=== PATIENT | male | born 2005 | race African-American/Black ===

== ENCOUNTER 2024-04-23 23:02 | Emergency (ER) | payer OTHER ==
[~2024-04-23] VITALS: Ht 185.4 cm; Wt 70.3 kg
[2024-04-24 00:04] VITALS: TEMP 98.1
[2024-04-24] MEDS ORDERED: KETOROLAC TROMETHAMINE 15 MG/ML VIAL ONE (00:17)
[2024-04-24] MEDS ORDERED: ACETAMINOPHEN ES 500 MG TABLET ONE (00:17)
[2024-04-24 00:23] LABS: BASOPHILS % (AUTO) 0.3 % (0.0-2.0); EOSINOPHILS # (AUTO) 1.2 K/uL (0.0-0.7); EOSINOPHILS % (AUTO) 10.2 % (0.0-6.0); HEMATOCRIT 41 % (39-51); HEMOGLOBIN 14.1 g/dL (13.5-17.5); LYMPHOCYTES # (AUTO) 0.9 K/uL (0.8-4.8); LYMPHOCYTES % (AUTO) 7.1 % (20.0-44.0); MEAN CORPUSCULAR HEMOGLOBIN 31 PG (26.0-33.0); MEAN CORPUSCULAR HGB CONC 35 g/dl (31.0-36.0); MEAN CORPUSCULAR VOLUME 90 fL (80-96); MONOCYTES # (AUTO) 0.7 K/uL (0.1-1.30); MONOCYTES % (AUTO) 5.4 % (2.0-12.0); NEUTROPHILS # (AUTO) 9.4 K/uL (1.8-8.9); PLATELET COUNT (AUTO) 227 K/uL (150-450); RED BLOOD CELL COUNT(AUTO) 4.54 MIL/uL (4.5-6.0); RED CELL DISTRIBUTION WIDTH 12.5 % (11.5-15.0); WHITE BLOOD COUNT (AUTO) 12.2 K/uL (4.3-11.0)
[2024-04-24] MEDS: ACETAMINOPHEN ES 500 MG TABLET PO ONE (00:24)
[2024-04-24] MEDS: KETOROLAC TROMETHAMINE 15 MG/ML VIAL IV ONE (00:24)
[2024-04-24] MEDS: IV NS 0.9% 1,000 ML BAG IV ONE (00:24)
[2024-04-24 00:33] LABS: CREATININE 0.9 mg/dL (0.6-1.3); POTASSIUM 4.3 mmol/L (3.5-5.1)
[2024-04-24 01:28] LABS: APPEARANCE,URINE CLEAR (CLEAR); BILIRUBIN,URINE NEGATIVE (NEGATIVE); BLOOD, URINE NEGATIVE Ery/uL (NEGATIVE); COLOR,URINE YELLOW (YELLOW); KETONES,URINE NEGATIVE (NEGATIVE); LEUKOCYTE ESTERASE ,URINE NEGATIVE (NEGATIVE); NITRITE, URINE NEGATIVE (NEGATIVE); PH,URINE 6.5 (5.0-8.0); PROTEIN,URINE NEGATIVE (NEGATIVE); UGLUCOSE NEGATIVE (NEGATIVE); UROBILINOGEN,URINE 0.2 EU/dL (0.2)
[2024-04-24] MEDS ORDERED: FAMOTIDINE/PF INJ 20 MG/2 ML VIAL IV ONE (01:45)
[2024-04-24] MEDS ORDERED: MAG HYDROX/AL HYDROX/SIMETH 30 ML UDC ONE (01:45)
[2024-04-24] MEDS ORDERED: PANTOPRAZOLE 40 MG VIAL ONE (01:45)
[2024-04-24] MEDS ORDERED: LIDOCAINE VISCOUS 2% UD 15 ML UDC ONE (01:45)
[2024-04-24 01:51] LABS: BILIRUBIN,DIRECT 0.2 mg/dL (0.0-0.2); BILIRUBIN,TOTAL 1.1 mg/dL (0.2-1.0); TOTAL PROTEIN, SERUM 6.9 g/dL (6.4-8.2)
[2024-04-24] MEDS: LIDOCAINE VISCOUS 2% UD 15 ML UDC MM ONE (01:52)
[2024-04-24] MEDS: PANTOPRAZOLE 40 MG VIAL IV ONE (01:52)
[2024-04-24] MEDS: DICYCLOMINE HCL 10 MG CAPSULE PO ONE (01:52)
[2024-04-24] MEDS: FAMOTIDINE/PF INJ 20 MG/2 ML VIAL IV ONE (01:52)
[2024-04-24] MEDS: MAG HYDROX/AL HYDROX/SIMETH 30 ML UDC PO ONE (01:52)
[2024-04-24] MEDS ORDERED: DICYCLOMINE HCL 10 MG CAPSULE PO ONE (01:53)
[2024-04-24] MEDS ORDERED: FAMO-131 PO (02:26)
[2024-04-24] MEDS ORDERED: DICY10CA37 PO (02:26)
[2024-04-24 02:57] VITALS: BP 120/77; O2SAT 97
== END 2024-04-24 02:57 | disposition home or self-care (01) ==
LOC: ER 23:11
DX: R10.13 Epigastric pain (principal)
CPT/HCPCS: 99285; 74176; 96374; 76705; 96375; 96361; 85025; 80048; 87086; 83690; 80076; 81003; 36415; J3490; J7030; J2470; J1885